=== PATIENT | female | born 1995 | race Caucasian/White ===

== ENCOUNTER 2018-11-04 20:24 | Inpatient (IN) | payer OTHER, SELFPAY ==
[2018-11-04] MEDS ORDERED: Ondansetron PF 4 MG/2 ML Vial IVP PRN ×2 (20:53→23:20)
[2018-11-04] MEDS ORDERED: Acetaminophen 500 MG TAB PO PRN (20:53)
[2018-11-04] MEDS ORDERED: Promethazine HCl 25 MG/ML VIAL IM PRN (20:53)
[2018-11-04] MEDS ORDERED: Lidocaine 1% (PF) 30 ML VIAL SC PRN (20:55)
[2018-11-04] MEDS ORDERED: Ibuprofen 800 MG TAB PO PRN (20:55)
[2018-11-04] MEDS ORDERED: NS / Oxytocin 40 units/1000ml 1,000 ML IV PRN (20:55)
--- NOTE | 2018-11-04 20:58 | PDOC.FPROB ---
FMR OB H&P: HPI - History of Present Illness Chief Complaint: Contractions Indentification: 23 year old History of Present Illness: 23 year old presents in active labor. Denies LoF, vaginal discharge, or vaginal bleeding. Endorses good movement. Primary Care Physician: CONNIE Leonard FMR OB H&P: Current - Care : 3 Para: 2001 Gestational age: 39.1 wks Due date: 11/10/2018 Dating Criteria: LMP/22.3 wks - OB Labs Blood type: A RH: positive Antibody Screen: negative HIV: negative RPR: negative HepBsAg: negative Rubella: immune FMR OB H&P: History - Past Medical History PMH: None - OB History OB History: Glucose intolerance: abnml 1 hr GTT with nml 3 hr GTT - FERRY PILOT History FERRY PILOT History: None - Surgical History Sx History: None - Social History Social History: Denies alcohol, tobacco, or drug use - Family History Family History: Insignificant FMR OB H&P: Medications - Current Home Medications: Medication Instructions Recorded Confirmed Type Ibuprofen [Motrin] 800 mg PO Q8HR #0 tab 07/24/16 Rx Allergies/Adverse Reactions: Allergies Allergy/AdvReac Type Severity Reaction Status Date / Time No Known Allergies Allergy Verified 07/22/16 20:39 FMR OB H&P: ROS - Review of Systems General: denies: fever/chills, weight/appetite/sleep changes Eyes: denies: double vision, scotomas ENT: denies: nasal congestion, rhinorrhea, sore throat Cardiovascular: denies: chest pain, edema Respiratory: denies: cough, congestion Gastrointestinal: denies: abdominal pain, nausea, vomiting Genitourinary (Female): reports: contractions. denies: dysuria, vaginal discharge, vaginal pain, vaginal bleeding Musculoskeletal: denies: pain, stiffness Neurologic: denies: syncope, seizures Hematologic/Lymphatic: denies: prolonged or excessive bleeding Psychological: denies: depression, anxiety FMR OB H&P: Vital Signs - Maternal Vital signs: BP wnl Pulse wnl - Heart Tones Baseline: 135 Variability: moderate Acceleration: present Deceleration: absent Category: category 1 [place] contractions every: q2 min FMR OB H&P: Physical Exam - Physical Exam General: NAD, awake, alert and oriented HEENT: MMM, grossly normal vision, grossly normal hearing Heart: RRR General: no respiratory distress, no wheezing Abdomen: soft, gravid, non-tender Musculoskeletal: pulses present Neurological: no tremor, no focal deficit Skin: no rash, capillary refill <2 seconds Lymphatic: no unusual bruising or bleeding, no purpura Psychiatric: intact recent and remote memory, good judgement and insight, normal mood and affect FMR OB H&P: A/P - Problem List (1) Active labor Current Visit: Yes Status: Acute Code(s): FNV1120 - Disposition: 23 year old at 39.1 wks presents with contractions 1. Active labor - /0 at appx 20:50 - Admit to L&D for expectant management 2. Term - See plan as above 3. Glucose intolerance - Abnormal 1hr GTT with normal 3 hr GTT Discussion: Date/Time: 11/04/182055 This H&P was discussed with Dr. Robledo who agrees with the above documentation and plan. Signature: Veronica Valencia, DO PGY-2
[2018-11-04] MEDS ORDERED: Lactated Ringer's 1,000 ML IV SCH (21:00)
[2018-11-04 21:16] VITALS: BMI 28.3
[2018-11-04 21:18] LABS: Hemoglobin 12.3 g/dL (12.0-16.0); Mean Corpuscular HGB CONC 33.5 g/dL (32.0-36.0); Mean Corpuscular Hemoglobin 25.3 pg (27.0-31.0); Mean Corpuscular Volume 75.4 fL (78.0-98.0); Mean Platelet Volume 9.2 fL (7.4-10.4); Platelet Count 267 thou/uL (130-400); RBC Distribution Width 14.3 % (11.5-14.5); Red Blood Cell (RBC) Count 4.89 mill/uL (4.20-5.40); White Blood Cell (WBC) Count 9.8 thou/uL (4.8-10.8)
[2018-11-04] MEDS ORDERED: NS / Oxytocin 40 units/1000ml 1,000 ML IV SCH (23:20)
[2018-11-04] MEDS ORDERED: Bisacodyl 10 MG SUPP PR PRN (23:20)
[2018-11-04] MEDS ORDERED: Milk Of Magnesia 30 ML UDCUP PO PRN (23:20)
[2018-11-04] MEDS ORDERED: Lanolin Ointment 7 GM TUBE TOP PRN (23:20)
[2018-11-04] MEDS ORDERED: diphenhydrAMINE 25 MG CAP PO PRN (23:20)
[2018-11-04 23:47] LABS: Syphilis Antibody Nonreactive (Nonreactive); Syphilis Antibody Index 0.04 S/CO (<1.00 Non-Reactive)
[2018-11-05] MEDS: Ibuprofen 800 MG TAB PO SCH ×5 (00:19→21:14)
[2018-11-05 00:37] LABS: HBSAg Index 0.18 S/CO (0-0.99); Hep B Surf Ag Non-Reactive S/CO (NonReactive)
[2018-11-05] MEDS: Ferrous Sulfate 325 MG TAB PO SCH ×2 (07:18→15:47)
--- NOTE | 2018-11-05 07:24 | PDOC.PP ---
Post Progress Note Post Day #: 1 Subjective: 23 yo ->3 PP day 1. Pt reports her pain is well controlled. Denies fever, chills. Reports PO liquids, ambulating, micturating, passing flatus. PO intake tolerated: yes Flatus: yes Ambulation: yes Vital Signs (12 hours) Temp Pulse Resp BP Pulse Ox 11/05/18 02:35 98.2 F 59 L 18 106/64 11/05/18 01:20 97.8 F 51 L 18 102/56 L 11/05/18 00:35 98.1 F 58 L 18 107/57 L 98 11/04/18 21:05 98.2 F 89 20 112/70 Weight Weight 65.771 kg - Physical Examination General: NAD Cardiovascular: no m/r/g, RRR Respiratory: clear to auscultation bilaterally, non-labored breathing Abdominal: + bowel sounds, no distention, appropriately TTP Result Diagrams: 11/04/18 20:55 Additional Labs: Post Labs Blood Type A POSITIVE 11/04/18 20:55 Hep Bs Antigen Non-Reactive S/CO (NonReactive) 11/04/18 20:55 (1) Term delivered Code(s): O80 - ENCOUNTER FOR FULL-TERM UNCOMPLICATED DELIVERY Status: Acute - Assessment/Plan TIUP, delivered - cont routine PP care - will plan for stay overnight and likely DC to home tomorrow. - monitor Is/Os - VSS Dispo: stable, likely DC to home tomorrow am. Addendum - Attending - Attending Attestation Date/Time: 11/05/18 [id number] I personally evaluated the patient and discussed the management with Dr. Mccarty I agree with the History, Examination, Assessment and Plan documented above.
[2018-11-05] MEDS: Prenatal Vitamin 1 TAB PO SCH (07:58)
[2018-11-05] MEDS: Docusate Calcium (SURFAK) 240 MG CAP PO SCH ×2 (07:58→21:14)
[2018-11-05] MEDS ORDERED: Adacel (T-DAP) 0.5 ML SYRINGE IM ONE (09:00)
[2018-11-06] MEDS: Ibuprofen 800 MG TAB PO SCH (05:34)
[2018-11-06 08:10] VITALS: BP 100/58; TEMP 98.2
[2018-11-06] MEDS: Ferrous Sulfate 325 MG TAB PO SCH (08:55)
[2018-11-06] MEDS: Prenatal Vitamin 1 TAB PO SCH (08:59)
[2018-11-06] MEDS: Docusate Calcium (SURFAK) 240 MG CAP PO SCH (08:59)
--- NOTE | 2018-11-06 09:07 | DN ---
DATE OF PROCEDURE: 11/04/2018 ATTENDING PHYSICIAN: Dr. Renetta Robledo DELIVERING PHYSICIANS: Dr. Rossi and Dr. Mccarty. PROCEDURE PERFORMED: Spontaneous vaginal delivery. ANESTHESIA: Local for repair. ESTIMATED BLOOD LOSS: 250 mL. PREOPERATIVE DIAGNOSIS: Term intrauterine of labor. POSTOPERATIVE DIAGNOSIS: Term intrauterine , delivered. INDICATIONS FOR PROCEDURE: A 23-year-old female, G3, P2-0-0-2, presents in active labor. DELIVERY NOTE: This is a 23-year-old female, G3, P2-0-0-2 at 39 and 1/7th weeks , who delivered a viable male infant at 2119 hours following an uneventful antepartum course. A vigorous male was delivered over an intact perineum in the occipital-anterior position. Initially, shoulder and then the remainder of body delivered. Loose nuchal cord x1. Head was held down. The mouth and nares were bulb suctioned. Cord was clamped and cut, cord blood was collected. Placenta was delivered intact with three vessel cord. Fundal massage was performed, fundus was firm. Cervix and vagina were inspected and found to have a first-degree laceration, repaired with 3-0 Vicryl in the usual fashion with good approximation and hemostasis after local anesthesia of lidocaine 1% without epinephrine was injected. The infant went to nursery in good condition for routine care. Apgars were 9 and 9 at 1 and 5 minutes respectively. The patient tolerated the delivery well and went to after routine recovery and care. Attending addendum: I was present for the entire delivery. Renetta Robledo MD Job ID: [id number] [id number]
== END 2018-11-06 13:30 | disposition home or self-care (01) | DRG 807 ==
LOC: L&D/OP 20:24 → L&D 20:55 → 3SW 11-05 01:33
PROVIDERS: ADMIT Obstetrics & Gynecology; ATTEND Obstetrics & Gynecology
PROC: 10E0XZZ Delivery of Products of Conception, External Approach (ICD-10-PCS; principal; 2018-11-04)
PROC: 10907ZC Drainage of Amniotic Fluid, Therapeutic from Products of Conception, Via Natural or Artificial Opening (ICD-10-PCS; 2018-11-04)
PROC: 0HQ9XZZ Repair Perineum Skin, External Approach (ICD-10-PCS; 2018-11-04)
DX: O69.81X0 Labor and delivery complicated by cord around neck, without compression, not applicable or unspecified (principal); Z37.0 Single live birth; Z3A.39 39 weeks gestation of pregnancy; O77.0 Labor and delivery complicated by meconium in amniotic fluid; O70.0 First degree perineal laceration during delivery; E74.39 Other disorders of intestinal carbohydrate absorption; O75.89 Other specified complications of labor and delivery; Z79.1 Long term (current) use of non-steroidal anti-inflammatories (NSAID); O62.3 Precipitate labor
CPT/HCPCS: 85027; 86780; 86850; 86900; 86901; 87340; 99285; J2001